=== PATIENT | male | born 1985 | race Caucasian/White ===

== ENCOUNTER 2019-02-17 17:17 | Emergency (ER) | payer SELFPAY ==
[2019-02-17] MEDS ORDERED: SODIUM CHLORIDE 0.9% 1000ML 1,000 ML IV STA (17:20)
[2019-02-17 17:51] LABS: BASOPHILS % 0.5 % (0.0-1.0); EOSINOPHILS # (AUTO) 0.2 (0.0-0.4); EOSINOPHILS % 3.1 % (0.0-6.0); HEMATOCRIT 35.9 % (38.2-49.6); HEMOGLOBIN 12.5 g/dL (14.0-18.0); MEAN CORPUSCULAR HEMOGLOBIN 33.2 pg (28-32); MEAN CORPUSCULAR HGB CONC 34.8 g/dL (31-35); MEAN CORPUSCULAR VOLUME 95.2 fL (81-99); MONOCYTES # (AUTO) 0.4 (0.2-0.8); MONOCYTES % 6.9 % (4.4-11.3); NEUTROPHILS # (AUTO) 3.4 (2.1-6.9); NEUTROPHILS % 56.3 % (38.7-80.0); PLATELET COUNT 225 x10e3/uL (140-360); RED BLOOD COUNT 3.77 x10e6/uL (4.3-5.7); RED CELL DISTRIBUTION WIDTH 12.3 % (11.7-14.4)
[2019-02-17 18:02] LABS: ACETAMINOPHEN 9 ug/mL (10-30); SALICYLATE < 5.0 mg/dL (0-30)
[2019-02-17 18:03] LABS: ALANINE AMINOTRANSFERASE 15 IU/L (0-55); ALBUMIN 3.6 g/dL (3.5-5.0); ALBUMIN/GLOBULIN RATIO 1.4 (0.8-2.0); ALKALINE PHOSPHATASE 41 IU/L (40-150); ANION GAP 10.6 mmol/L (8-16); BLOOD UREA NITROGEN 19 mg/dL (7-26); BUN/CREATININE RATIO 26 (6-25); CALCIUM 8.5 mg/dL (8.4-10.2); CARBON DIOXIDE 25 mmol/L (22-29); CHLORIDE 109 mmol/L (98-107); CREATINE KINASE 205 IU/L (30-200); CREATININE, SERUM 0.72 mg/dL (0.72-1.25); EST GLOMERULAR FILTRATION RATE > 60 ML/MIN (60-); GLUCOSE 94 mg/dL (74-118); LIPASE 23 U/L (8-78); MAGNESIUM 2.2 MG/DL (1.3-2.1); POTASSIUM 3.6 mmol/L (3.5-5.1); SODIUM 141 mmol/L (136-145)
[2019-02-17 18:10] LABS: CLARITY,URINE CLEAR (CLEAR); COLOR,URINE YELLOW (YELLOW); KETONES,URINE TRACE (NEGATIVE); LEUKOCYTE ESTERASE ,URINE NEGATIVE (NEGATIVE); NITRITE,URINE NEGATIVE (NEGATIVE); PROTEIN,URINE DIPSTICK TRACE (NEGATIVE)
[2019-02-17 18:11] LABS: BILIRUBIN,URINE 1+ (NEGATIVE); URINE UROBILINOGEN 0.2 mg/dL (0.2 - 1)
[2019-02-17 18:12] LABS: AMPHETAMINES SCREEN,URINE NEGATIVE (NEGATIVE); BENZODIAZEPINES SCREEN,URINE NEGATIVE (NEGATIVE); PHENCYCLIDINE SCREEN,URINE NEGATIVE (NEGATIVE)
[2019-02-17 18:28] LABS: RBC,URINE 0-5 /HPF (0-5); WBC,URINE (MAN) 0-5 /HPF (0-5)
[2019-02-17 18:29] LABS: AMORPHOUS SEDIMENT,URINE RARE (FEW); MUCUS,URINE MODERATE (RARE)
--- NOTE | 2019-02-17 18:40 | Diagnostic Imaging Report ---
CT BRAIN WO HISTORY: heat stroke, lightheaded COMPARISON: None. TECHNIQUE: Noncontrast axial scans were obtained from skull base to the vertex. Coronal and sagittal reconstructions obtained from the axial data. One or more of the following dose reduction techniques were used: Automated exposure control, adjustment of the mA and/or kV according to patient size, and/or utilization of iterative reconstruction technique. DISCUSSION: Scalp/Skull: Unremarkable. Brain sulci: Appropriate for patient's age. Ventricles: Normal in size and configuration. No hydrocephalus. Extra-axial spaces: No masses or fluid collections. Parenchyma: No abnormal densities. No mass, hemorrhage, or large vascular territory acute infarct. Dural sinuses: No abnormal densities. Sellar/Suprasellar region: Intact. Skull base: Intact. 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 IMPRESSION: No intracranial abnormalities. Signed by: Dr. Jesus العراقي M.D. on 02/17/2019 6:36 PM
--- NOTE | 2019-02-17 19:05 | NUR ---
Report to SALVADOR Faria.
--- NOTE | 2019-02-17 19:05 | NUR ---
RECEIVED REPORT FROM SALVADOR MERRITT.
--- NOTE | 2019-02-17 20:01 | NUR ---
PT RESTING WITH EYES CLOSED, EASILY AROUSED, PT UNABLE TO REMEMBER PHONE NUMBERS FOR FAMILY TO COME PICK HIM UP, CALL NUMBERS LISTED IN CHART AND NOT WORKING NUMBERS
== END 2019-02-17 21:19 | disposition home or self-care (01) ==
LOC: ER 17:17
DX: F11.129 Opioid abuse with intoxication, unspecified (principal)
CPT/HCPCS: 36415; 70450; 80053; 80307; 80320; 80329 ×2; 81001; 82550; 82553; 83605; 83690; 83735; 84484; 85025; 85730; 87040; 87086; 93005; 99284; J7030